=== PATIENT | female | born 1930 | race African-American/Black ===

== ENCOUNTER 2017-01-23 10:11 | Inpatient (IN) ==
[2017-01-23] MEDS ORDERED: SODIUM CHLORIDE 0.9% 1,000 ML IV STA (10:51)
[2017-01-23] MEDS ORDERED: SODIUM CHLORIDE 0.9% 2,000 ML IV STA (11:05)
[2017-01-23 11:19] LABS: Basophils # 0.1 10*3/uL (0.0-0.2); Basophils % 0.4 % (0.0-0.8); Eosinophils # 0.8 10*3/uL (0.0-0.87); Eosinophils % 3.1 % (0.00-10.9); Hemoglobin 11.7 GM/DL (12.0-16.0); Immature Granulocytes % 0.9 %; Immature Granulocytes Absolute 0.21 #; Lymphocytes # 3.7 10*3/uL (1.4-4.0); Lymphocytes % 15.2 % (21.3-54.2); Mean Corpuscular HGB Conc 32.5 GM/DL (32-36); Mean Corpuscular Hemoglobin 30 PG (27-34); Mean Corpuscular Volume 92.5 FL (87-102); Mean Platelet Volume 11.3 FL (9.6-12.0); Monocytes # 1.9 10*3/uL (0.11-0.8); Monocytes % 7.9 % (1.7-12.7); Neutrophils # 17.6 10*3/uL (1.4-7.4); Neutrophils % 72.5 % (38.7-73.9); Platelet Count 178 T/CUMM (130-400); Red Blood Count 3.89 MC/CUMM (3.8-5.5); Red Cell Distribution Width 14.7 % (9.3-17.3); White Blood Count 24.3 T/CUMM (4-12)
[2017-01-23] MEDS ORDERED: PIPERACILLIN/TAZOBACTAM 3,375 MG in SODIUM CHLORIDE 0.9% 100 ML IV STA (11:27)
[2017-01-23 11:32] LABS: ABG Base Excess 5.8 MMOL/L (-2.5-2.5); ABG HCO3 29.7 MMOL/L (20-26); ABG Oxygen Saturation 95.7 % (95-100); ABG PCO2 60.1 MM HG (35-48); ABG PH 7.351 (7.35-7.45); ABG PO2 80.8 MM HG (80-95); ABG TCO2 29.9 MMOL/L (23-27)
[2017-01-23 11:33] LABS: INR 1.1; PT Patient Result 11.4 SECS; Partial Thromboplastin Time 33.6 SECS (0-40)
[2017-01-23 11:44] LABS: Band Neutrophils 7 % (0-10); Lymphocytes 13 % (20-55); Platelet Estimate Normal; Segmented Neutrophils 77 % (50-85); Total Cells Counted 100
[2017-01-23 11:58] LABS: Alanine Aminotransferase 30 U/L (13-56); Albumin 2.6 G/DL (3.4-5.0); Alkaline Phosphatase 126 U/L (45-117); Aspartate Amino Transferase 30 U/L (0-37); Blood Urea Nitrogen 49 MG/DL (7-18); Calcium 9.4 MG/DL (8.5-10.1); Glucose 208 MG/DL (74-106); Sodium 136 MMOL/L (136-145); Total Protein 6.3 G/DL (6.4-8.3); Troponin I Only 0.016 NG/ML (0.00-0.045)
[2017-01-23 12:01] LABS: Apearance,Urine CLEAR (Clear); Bacteria,Urine Occasional /HPF (Few); Bilirubin,Urine Negative (Negative); Blood, Urine Negative (Negative); Glucose,Urine (UA) Negative (Negative); Hyaline Casts,Urine 2 /LPF (0-3); Ketones,Urine Negative (Negative); Mucus,Urine Occasional /LPF (Occasional); Nitrite,Urine Negative (Negative); Protein,Urine Negative; RBC,Urine <1 /HPF (0-4); Squamous Epithelial Cell,Urine Occasional /HPF (0-10); Urine Color Yellow (Yellow); Urine Specific Gravity 1.008 (1.001-1.035); Urine Urobilinogen < 2.0 EU/DL (0.2-1.0); WBC,Urine 1 /HPF (0-6)
[2017-01-23] MEDS ORDERED: PIPERACILLIN/TAZOBACTAM 3,375 MG VIAL IV ONE (12:01)
[2017-01-23 12:16] LABS: Barbiturates Screen,Urine Negative (Negative); Benzodiazepines Screen,Urine Negative (Negative); Cannabinoid Screen,Urine Negative (Negative); Opiate Screen,Urine Negative (Negative); Phencyclidine Screen,Urine Negative (Negative)
[2017-01-23 12:28] LABS: Ammonia < 10 UMOL/L (11-32)
[2017-01-23] MEDS ORDERED: SODIUM CHLORIDE 0.9% 1,000 ML IV ONE (12:30)
[2017-01-23] MEDS ORDERED: DEXTROSE 50% 25 GM/50 ML VIAL IV PRN (15:11)
[2017-01-23] MEDS ORDERED: GLUCAGON 1 MG VIAL IM PRN (15:11)
[2017-01-23] MEDS: SODIUM CHLORIDE 0.9% 1,000 ML IV SCH (15:33)
[2017-01-23] MEDS ORDERED: LEVOFLOXACIN INJ 500 MG in PREMIX 1 EACH IV SCH (16:00)
[2017-01-23] MEDS ORDERED: CYANOCOBALAMIN 1000 MCG/1 ML VIAL IM SCH (17:30)
[2017-01-23] MEDS: INSULIN REGULAR 100 UNIT/ML SUBCUT SCH ×2 (17:36→21:21)
[2017-01-23] MEDS: DONEPEZIL 5 MG TABLET PO SCH (21:21)
[2017-01-23] MEDS: AMITRIPTYLINE 100 MG TABLET PO SCH (21:21)
[2017-01-23] MEDS: SIMVASTATIN 10 MG TABLET PO SCH (21:21)
[2017-01-23] MEDS: MEMANTINE 10 MG TABLET PO SCH ×2 (21:21→21:30)
[2017-01-24] MEDS ORDERED: traMADol 50 MG TABLET PO PRN (03:16)
[2017-01-24 05:24] LABS: Basophils # 0.1 10*3/uL (0.0-0.2); Basophils % 0.6 % (0.0-0.8); Eosinophils # 0.6 10*3/uL (0.0-0.87); Eosinophils % 4.1 % (0.00-10.9); Hematocrit 33.9 VOL% (35.7-47.0); Hemoglobin 11.3 GM/DL (12.0-16.0); Immature Granulocytes % 1.2 %; Immature Granulocytes Absolute 0.18 #; Lymphocytes # 3.2 10*3/uL (1.4-4.0); Lymphocytes % 20.5 % (21.3-54.2); Mean Corpuscular HGB Conc 33.3 GM/DL (32-36); Mean Corpuscular Hemoglobin 31 PG (27-34); Mean Corpuscular Volume 93.1 FL (87-102); Mean Platelet Volume 11.2 FL (9.6-12.0); Monocytes # 1.5 10*3/uL (0.11-0.8); Monocytes % 9.8 % (1.7-12.7); Neutrophils # 9.9 10*3/uL (1.4-7.4); Neutrophils % 63.8 % (38.7-73.9); Platelet Count 201 T/CUMM (130-400); Red Blood Count 3.64 MC/CUMM (3.8-5.5); Red Cell Distribution Width 14.8 % (9.3-17.3); White Blood Count 15.5 T/CUMM (4-12)
[2017-01-24 05:52] LABS: Calcium 8.6 MG/DL (8.5-10.1); Osmolality,Calculated 295.7 MOS/KG (273-304); Potassium 4.5 MMOL/L (3.5-5.1)
[2017-01-24] MEDS: INSULIN REGULAR 100 UNIT/ML SUBCUT SCH ×4 (08:51→21:15)
[2017-01-24] MEDS: CALCIUM (CARBONATE)/VITAMIN D 600 MG-400 UNIT TABLET PO SCH (09:24)
[2017-01-24] MEDS: MEMANTINE 10 MG TABLET PO SCH ×2 (09:25→21:08)
[2017-01-24] MEDS: CHOLECALCIFEROL 1,000 UNIT TABLET PO SCH (09:25)
[2017-01-24] MEDS: PANTOPRAZOLE 40 MG TABLET PO SCH (09:25)
[2017-01-24] MEDS: SODIUM CHLORIDE 0.9% 1,000 ML IV SCH (11:01)
[2017-01-24] MEDS: LEVOFLOXACIN INJ 250 MG in PREMIX 1 EACH IV SCH (15:52)
[2017-01-24] MEDS: DONEPEZIL 5 MG TABLET PO SCH (21:08)
[2017-01-24] MEDS: AMITRIPTYLINE 100 MG TABLET PO SCH (21:08)
[2017-01-24] MEDS: SIMVASTATIN 10 MG TABLET PO SCH (21:08)
[2017-01-24] MEDS ORDERED: ALBUTEROL/IPRATROPIUM 3 ML NEB RESP TX PRN (23:23)
[2017-01-24] MEDS ORDERED: SODIUM CHLORIDE 0.45% 1,000 ML IV SCH (23:30)
[2017-01-24] MEDS ORDERED: NITROGLYCERIN SL 0.4 MG TABLET SL ONE (23:43)
[2017-01-24] MEDS ORDERED: NITROGLYCERIN SL 0.4 MG TABLET SL PRN (23:46)
[2017-01-25 00:04] LABS: Basophils # 0.1 10*3/uL (0.0-0.2); Basophils % 0.5 % (0.0-0.8); Eosinophils # 0.4 10*3/uL (0.0-0.87); Eosinophils % 3.1 % (0.00-10.9); Hemoglobin 11.4 GM/DL (12.0-16.0); Immature Granulocytes % 1.4 %; Immature Granulocytes Absolute 0.16 #; Lymphocytes # 3.2 10*3/uL (1.4-4.0); Lymphocytes % 28.4 % (21.3-54.2); Mean Corpuscular HGB Conc 32.6 GM/DL (32-36); Mean Corpuscular Hemoglobin 30 PG (27-34); Mean Corpuscular Volume 92.8 FL (87-102); Mean Platelet Volume 10.5 FL (9.6-12.0); Monocytes # 1.5 10*3/uL (0.11-0.8); Monocytes % 13.2 % (1.7-12.7); Neutrophils % 53.4 % (38.7-73.9); Platelet Count 214 T/CUMM (130-400); Red Blood Count 3.77 MC/CUMM (3.8-5.5); Red Cell Distribution Width 14.6 % (9.3-17.3); White Blood Count 11.3 T/CUMM (4-12)
[2017-01-25] MEDS ORDERED: hydrALAZINE 20 MG/1 ML VIAL IV PRN (00:04)
[2017-01-25 00:39] LABS: Alanine Aminotransferase 20 U/L (13-56); Albumin 2.3 G/DL (3.4-5.0); Alkaline Phosphatase 96 U/L (45-117); Aspartate Amino Transferase 20 U/L (0-37); Blood Urea Nitrogen 20 MG/DL (7-18); Calcium 8.2 MG/DL (8.5-10.1); Glucose 112 MG/DL (74-106); Osmolality,Calculated 289.8 MOS/KG (273-304); Potassium 4.2 MMOL/L (3.5-5.1); Sodium 144 MMOL/L (136-145); Total Protein 5.9 G/DL (6.4-8.3); Troponin I Only < 0.015 NG/ML (0.00-0.045)
[2017-01-25] MEDS: ALBUTEROL/IPRATROPIUM 3 ML NEB RESP TX SCH ×6 (02:00→23:53)
[2017-01-25 06:50] LABS: Calcium 8.8 MG/DL (8.5-10.1); Osmolality,Calculated 290.7 MOS/KG (273-304); Potassium 4.6 MMOL/L (3.5-5.1)
[2017-01-25 07:34] LABS: Basophils # 0.1 10*3/uL (0.0-0.2); Basophils % 0.7 % (0.0-0.8); Eosinophils # 0.2 10*3/uL (0.0-0.87); Eosinophils % 1.9 % (0.00-10.9); Hematocrit 37.3 VOL% (35.7-47.0); Hemoglobin 12.2 GM/DL (12.0-16.0); Immature Granulocytes % 1.9 %; Immature Granulocytes Absolute 0.23 #; Lymphocytes # 2.5 10*3/uL (1.4-4.0); Lymphocytes % 20.3 % (21.3-54.2); Mean Corpuscular HGB Conc 32.7 GM/DL (32-36); Mean Corpuscular Hemoglobin 30 PG (27-34); Mean Corpuscular Volume 92.6 FL (87-102); Mean Platelet Volume 11.3 FL (9.6-12.0); Monocytes # 1.5 10*3/uL (0.11-0.8); Monocytes % 12.7 % (1.7-12.7); Neutrophils # 7.6 10*3/uL (1.4-7.4); Neutrophils % 62.5 % (38.7-73.9); Platelet Count 236 T/CUMM (130-400); Red Blood Count 4.03 MC/CUMM (3.8-5.5); Red Cell Distribution Width 14.8 % (9.3-17.3); White Blood Count 12.1 T/CUMM (4-12)
[2017-01-25] MEDS: MEMANTINE 10 MG TABLET PO SCH ×2 (10:01→20:32)
[2017-01-25] MEDS: FUROSEMIDE 40 MG TABLET PO SCH ×2 (10:01→16:08)
[2017-01-25] MEDS: PANTOPRAZOLE 40 MG TABLET PO SCH (10:01)
[2017-01-25] MEDS: CALCIUM (CARBONATE)/VITAMIN D 600 MG-400 UNIT TABLET PO SCH (10:01)
[2017-01-25] MEDS: POTASSIUM CHLORIDE 10 MEQ TABLET PO SCH (10:01)
[2017-01-25] MEDS: INSULIN REGULAR 100 UNIT/ML SUBCUT SCH ×4 (10:01→20:33)
[2017-01-25] MEDS: CHOLECALCIFEROL 1,000 UNIT TABLET PO SCH (10:01)
[2017-01-25] MEDS: LOSARTAN 25 MG TABLET PO SCH (10:02)
[2017-01-25] MEDS: SODIUM CHLORIDE 0.9% 1,000 ML IV SCH (10:02)
[2017-01-25] MEDS: LEVOFLOXACIN INJ 250 MG in PREMIX 1 EACH IV SCH (16:08)
[2017-01-25] MEDS: ACETAMINOPHEN 325 MG TABLET PO PRN (17:56)
[2017-01-25] MEDS ORDERED: VANCOMYCIN INJ 1,000 MG in SODIUM CHLORIDE 0.9% 250 ML IV SCH (18:00)
[2017-01-25] MEDS: PIPERACILLIN/TAZOBACTAM 3,375 MG in SODIUM CHLORIDE 0.9% 100 ML IV SCH (18:37)
[2017-01-25] MEDS: DONEPEZIL 5 MG TABLET PO SCH (20:32)
[2017-01-25] MEDS: AMITRIPTYLINE 100 MG TABLET PO SCH (20:32)
[2017-01-25] MEDS: SIMVASTATIN 10 MG TABLET PO SCH (20:32)
[2017-01-25] MEDS ORDERED: VANCOMYCIN INJ 1,500 MG in SODIUM CHLORIDE 0.9% 500 ML IV SCH (22:00)
[2017-01-25 22:14] LABS: Apearance,Urine CLEAR (Clear); Bacteria,Urine Few /HPF (Few); Bilirubin,Urine Negative (Negative); Blood, Urine Negative (Negative); Glucose,Urine (UA) 50 mg/dL (Negative); Hyaline Casts,Urine 1 /LPF (0-3); Ketones,Urine 5 mg/dL (Negative); Mucus,Urine Occasional /LPF (Occasional); Nitrite,Urine Negative (Negative); Protein,Urine Negative; RBC,Urine 7 /HPF (0-4); Squamous Epithelial Cell,Urine Occasional /HPF (0-10); Urine Color Yellow (Yellow); Urine Urobilinogen < 2.0 EU/DL (0.2-1.0); WBC,Urine 3 /HPF (0-6)
[2017-01-26] MEDS: ALBUTEROL/IPRATROPIUM 3 ML NEB RESP TX SCH ×6 (03:25→23:47)
[2017-01-26 05:48] LABS: Basophils # 0.1 10*3/uL (0.0-0.2); Basophils % 0.8 % (0.0-0.8); Eosinophils # 0.2 10*3/uL (0.0-0.87); Eosinophils % 1.6 % (0.00-10.9); Hematocrit 38.7 VOL% (35.7-47.0); Hemoglobin 12.9 GM/DL (12.0-16.0); Immature Granulocytes Absolute 0.23 #; Lymphocytes % 25.8 % (21.3-54.2); Mean Corpuscular HGB Conc 33.3 GM/DL (32-36); Mean Corpuscular Hemoglobin 30 PG (27-34); Mean Corpuscular Volume 90.8 FL (87-102); Mean Platelet Volume 11.3 FL (9.6-12.0); Monocytes # 1.8 10*3/uL (0.11-0.8); Monocytes % 15.8 % (1.7-12.7); Neutrophils # 6.3 10*3/uL (1.4-7.4); Platelet Count 246 T/CUMM (130-400); Red Blood Count 4.26 MC/CUMM (3.8-5.5); Red Cell Distribution Width 14.1 % (9.3-17.3); White Blood Count 11.6 T/CUMM (4-12)
[2017-01-26] MEDS: PIPERACILLIN/TAZOBACTAM 3,375 MG in SODIUM CHLORIDE 0.9% 100 ML IV SCH ×2 (06:03→14:32)
[2017-01-26 06:07] LABS: Calcium 8.9 MG/DL (8.5-10.1); Osmolality,Calculated 283.5 MOS/KG (273-304); Potassium 4.3 MMOL/L (3.5-5.1)
[2017-01-26 06:56] LABS: Hypochromasia 1+; Lymphocytes 14 % (20-55); Platelet Estimate Adequate; Segmented Neutrophils 63 % (50-85); Total Cells Counted 100
[2017-01-26] MEDS: INSULIN REGULAR 100 UNIT/ML SUBCUT SCH ×4 (10:09→21:32)
[2017-01-26] MEDS: LOSARTAN 25 MG TABLET PO SCH (10:10)
[2017-01-26] MEDS: PANTOPRAZOLE 40 MG TABLET PO SCH (10:10)
[2017-01-26] MEDS: MEMANTINE 10 MG TABLET PO SCH ×2 (10:10→21:29)
[2017-01-26] MEDS: POTASSIUM CHLORIDE 10 MEQ TABLET PO SCH (10:10)
[2017-01-26] MEDS: FUROSEMIDE 40 MG TABLET PO SCH ×2 (10:10→16:01)
[2017-01-26] MEDS: CHOLECALCIFEROL 1,000 UNIT TABLET PO SCH (10:16)
[2017-01-26] MEDS: CALCIUM (CARBONATE)/VITAMIN D 600 MG-400 UNIT TABLET PO SCH (10:16)
[2017-01-26] MEDS ORDERED: DEXTROSE 50% 25 GM/50 ML VIAL IV PRN (11:25)
[2017-01-26] MEDS ORDERED: GLUCAGON 1 MG VIAL IM PRN (11:25)
[2017-01-26] MEDS: SODIUM CHLORIDE 0.9% 1,000 ML IV SCH (16:00)
[2017-01-26] MEDS: ACETAMINOPHEN 325 MG TABLET PO PRN (16:01)
[2017-01-26] MEDS: VANCOMYCIN INJ 1,500 MG in SODIUM CHLORIDE 0.9% 500 ML IV SCH (16:01)
[2017-01-26] MEDS ORDERED: INSULIN GLARGINE 100 UNIT/ML SUBCUT SCH (21:00)
[2017-01-26] MEDS: SIMVASTATIN 10 MG TABLET PO SCH (21:29)
[2017-01-26] MEDS: DONEPEZIL 5 MG TABLET PO SCH (21:29)
[2017-01-26] MEDS: AMITRIPTYLINE 100 MG TABLET PO SCH (21:29)
[2017-01-27] MEDS: PIPERACILLIN/TAZOBACTAM 3,375 MG in SODIUM CHLORIDE 0.9% 100 ML IV SCH ×2 (01:12→10:15)
[2017-01-27] MEDS: ALBUTEROL/IPRATROPIUM 3 ML NEB RESP TX SCH ×3 (03:38→11:20)
[2017-01-27] MEDS: FUROSEMIDE 40 MG TABLET PO SCH (09:09)
[2017-01-27] MEDS: INSULIN REGULAR 100 UNIT/ML SUBCUT SCH ×2 (09:10→12:32)
[2017-01-27] MEDS ORDERED: BISACODYL 10 MG SUPP RECTAL PRN (09:36)
[2017-01-27] MEDS: POTASSIUM CHLORIDE 10 MEQ TABLET PO SCH (10:18)
[2017-01-27] MEDS: LOSARTAN 25 MG TABLET PO SCH (10:18)
[2017-01-27] MEDS: CALCIUM (CARBONATE)/VITAMIN D 600 MG-400 UNIT TABLET PO SCH (10:19)
[2017-01-27] MEDS: CHOLECALCIFEROL 1,000 UNIT TABLET PO SCH (10:19)
[2017-01-27] MEDS: MEMANTINE 10 MG TABLET PO SCH (10:19)
[2017-01-27] MEDS: PANTOPRAZOLE 40 MG TABLET PO SCH (10:19)
[2017-01-27 11:44] VITALS: BP 142/70
[2017-01-27] MEDS: VANCOMYCIN INJ 1,500 MG in SODIUM CHLORIDE 0.9% 500 ML IV SCH (16:00)
[2017-01-27] MEDS ORDERED: POLYETHYLENE GLYCOL POWDER 17 GM PACK PO SCH (21:00)
[2017-01-30] MEDS ORDERED: NON-FORMULARY MEDICATION (Alendronate [Fosamax] 70 MG) PO SCH (07:30)
== END 2017-01-27 13:30 | disposition swing bed (61) | DRG 193 ==
LOC: N.ED 10:11 → N.EDINP 12:05 → N.5E 14:57
PROVIDERS: ADMIT Internal Medicine; ATTEND Internal Medicine

== ENCOUNTER 2018-10-01 11:18 | Inpatient (IN) ==
[2018-10-01] MEDS ORDERED: NITROGLYCERIN SL 0.4 MG TABLET SL PRN (11:44)
[2018-10-01 11:59] LABS: Basophils % 0.5 % (0.0-0.8); Eosinophils # 0.3 10*3/uL (0.0-0.87); Eosinophils % 3.6 % (0.00-10.9); Hematocrit 35.8 VOL% (35.7-47.0); Hemoglobin 11.2 GM/DL (12.0-16.0); Immature Granulocytes % 0.7 %; Immature Granulocytes Absolute 0.06 #; Lymphocytes # 2.4 10*3/uL (1.4-4.0); Lymphocytes % 28.3 % (21.3-54.2); Mean Corpuscular HGB Conc 31.3 GM/DL (32-36); Mean Corpuscular Volume 96.8 FL (87-102); Mean Platelet Volume 12.7 FL (9.6-12.0); Monocytes % 13.7 % (1.7-12.7); Neutrophils % 53.2 % (38.7-73.9); Platelet Count 157 T/CUMM (130-400); Red Cell Distribution Width 14.9 % (9.3-17.3); White Blood Count 8.6 T/CUMM (4-12)
[2018-10-01 12:25] LABS: Apearance,Urine Slightly Hazy (Clear); Bilirubin,Urine Negative (Negative); Blood, Urine Negative (Negative); Glucose,Urine (UA) Negative (Negative); Hyaline Casts,Urine 9 /LPF (0-3); Ketones,Urine Negative (Negative); Nitrite,Urine Negative (Negative); Protein,Urine Negative; RBC,Urine 1 /HPF (0-4); Squamous Epithelial Cell,Urine Few /HPF (0-10); Urine Color Straw (Yellow); Urine Specific Gravity 1.008 (1.001-1.035); Urine Urobilinogen < 2.0 EU/DL (0.2-1.0); WBC,Urine <1 /HPF (0-6)
[2018-10-01 12:51] LABS: Alanine Aminotransferase 18 U/L (13-56); Albumin 3.1 G/DL (3.4-5.0); Alkaline Phosphatase 73 U/L (45-117); Aspartate Amino Transferase 35 U/L (0-37); Blood Urea Nitrogen 47 MG/DL (7-18); Calcium 9.1 MG/DL (8.5-10.1); Glucose 104 MG/DL (74-106); Osmolality,Calculated 292.3 MOS/KG (273-304); Total Protein 6.9 G/DL (6.4-8.3)
[2018-10-01 13:01] LABS: Platelet Estimate Normal
[2018-10-01] MEDS ORDERED: ONDANSETRON 4 MG/2 ML VIAL IV STA (13:54)
[2018-10-01] MEDS ORDERED: MORPHINE 4 MG/1 ML VIAL IV STA (13:54)
[2018-10-01] MEDS ORDERED: FUROSEMIDE 40 MG/4 ML VIAL IV STA (14:06)
[2018-10-01] MEDS ORDERED: methylPREDNISolone SOD SUC 40 MG/1 ML VIAL IV STA (14:09)
[2018-10-01] MEDS ORDERED: LACTATED RINGERS 500 ML IV ONE (14:35)
[2018-10-01] MEDS ORDERED: PROMETHAZINE 25 MG/1 ML VIAL IM PRN (14:36)
[2018-10-01] MEDS ORDERED: ONDANSETRON 4 MG/2 ML VIAL IV PRN ×2 (14:36)
[2018-10-01] MEDS ORDERED: guaiFENesin/DM ER 600-30 MG TABLET PO PRN (14:36)
[2018-10-01] MEDS ORDERED: traZODone 50 MG TABLET PO PRN (14:36)
[2018-10-01] MEDS ORDERED: ACETAMINOPHEN 325 MG TABLET PO PRN ×2 (14:36)
[2018-10-01] MEDS ORDERED: LACTULOSE 20 GM/30 ML UDCUP PO PRN (14:38)
[2018-10-01] MEDS ORDERED: DEXTROSE 50% 25 GM/50 ML VIAL IV PRN (14:40)
[2018-10-01] MEDS ORDERED: GLUCAGON 1 MG VIAL IM PRN (14:40)
[2018-10-01] MEDS ORDERED: [UNRECOGNIZED DRUG - OTHER] PO SCH (14:45)
[2018-10-01] MEDS ORDERED: CYANOCOBALAMIN 1000 MCG/1 ML VIAL IM SCH (15:00)
[2018-10-01] MEDS ORDERED: GABAPENTIN 300 MG CAPSULE PO SCH (15:00)
[2018-10-01] MEDS ORDERED: DEXTROSE 5% NACL 0.45% 1,000 ML IV SCH (15:00)
[2018-10-01] MEDS ORDERED: PANTOPRAZOLE 40 MG TABLET PO SCH (15:00)
[2018-10-01] MEDS: ENOXAPARIN 30 MG/0.3 ML SYRINGE SUBCUT SCH (15:16)
[2018-10-01] MEDS: INSULIN LISPRO 100 UNIT/ML SUBCUT SCH ×4 (18:29→21:32)
[2018-10-01] MEDS: DEXTROSE 5% NACL 0.45% 1,000 ML IV SCH (18:40)
[2018-10-01 19:50] LABS: Uric Acid 14.4 MG/DL (2.6-6.0)
[2018-10-01] MEDS: traZODone 50 MG TABLET PO SCH (21:21)
[2018-10-01] MEDS: MELATONIN 3 MG TABLET PO SCH (21:21)
[2018-10-01] MEDS: DOCUSATE SODIUM 100 MG CAPSULE PO SCH (21:22)
[2018-10-01] MEDS: MEMANTINE 10 MG TABLET PO SCH (21:22)
[2018-10-01] MEDS: METOPROLOL TARTRATE 25 MG TABLET PO SCH (21:22)
[2018-10-01] MEDS: AMITRIPTYLINE 100 MG TABLET PO SCH (21:22)
[2018-10-01] MEDS: ASCORBIC ACID 500 MG TABLET PO SCH (21:22)
[2018-10-01] MEDS: SIMVASTATIN 10 MG TABLET PO SCH (21:22)
[2018-10-02] MEDS: DEXTROSE 5% NACL 0.45% 1,000 ML IV SCH ×2 (02:42→09:24)
[2018-10-02 05:07] LABS: Basophils % 0.3 % (0.0-0.8); Hematocrit 34.5 VOL% (35.7-47.0); Hemoglobin 10.7 GM/DL (12.0-16.0); Immature Granulocytes % 0.7 %; Immature Granulocytes Absolute 0.04 #; Lymphocytes % 16.6 % (21.3-54.2); Mean Corpuscular Volume 96.6 FL (87-102); Monocytes % 2.3 % (1.7-12.7); Neutrophils % 80.1 % (38.7-73.9); Platelet Count 177 T/CUMM (130-400); Red Blood Count 3.57 MC/CUMM (3.8-5.5); Red Cell Distribution Width 14.2 % (9.3-17.3); White Blood Count 5.7 T/CUMM (4-12)
[2018-10-02 05:18] LABS: Albumin 2.2 G/DL (3.4-5.0); Bilirubin,Total 0.9 MG/DL (0.2-1.0); Calcium 8.4 MG/DL (8.5-10.1); Osmolality,Calculated 308.1 MOS/KG (273-304); Total Protein 6.3 G/DL (6.4-8.3)
[2018-10-02] MEDS: INSULIN LISPRO 100 UNIT/ML SUBCUT SCH ×8 (06:05→20:40)
[2018-10-02] MEDS: ALBUMIN 25% 25 GM in PREMIX 1 EACH IV SCH ×2 (08:57→16:50)
[2018-10-02] MEDS: SODIUM CHLORIDE 0.9% 1,000 ML IV SCH ×3 (08:58→20:44)
[2018-10-02 09:22] LABS: ABG Base Excess 9.2 MMOL/L (-2.5-2.5); ABG HCO3 32.9 MMOL/L (20-26); ABG Oxygen Saturation 96.4 % (95-100); ABG PCO2 61.1 MM HG (35-48); ABG PH 7.385 (7.35-7.45); ABG PO2 84.3 MM HG (80-95); ABG TCO2 32.7 MMOL/L (23-27)
[2018-10-02] MEDS: CALCIUM (CARBONATE)/VITAMIN D 600 MG-400 UNIT TABLET PO SCH ×2 (12:41→14:57)
[2018-10-02] MEDS: DOCUSATE SODIUM 100 MG CAPSULE PO SCH ×3 (12:41→20:34)
[2018-10-02] MEDS: POTASSIUM CHLORIDE 10 MEQ TABLET PO SCH ×2 (12:41→14:57)
[2018-10-02] MEDS: MEMANTINE 10 MG TABLET PO SCH ×3 (12:42→20:35)
[2018-10-02] MEDS: PANTOPRAZOLE 40 MG TABLET PO SCH ×2 (12:42→14:58)
[2018-10-02] MEDS: predniSONE 20 MG TABLET PO SCH ×2 (12:42→14:58)
[2018-10-02] MEDS: METOPROLOL TARTRATE 25 MG TABLET PO SCH ×3 (12:42→20:34)
[2018-10-02] MEDS: CHOLECALCIFEROL 1,000 UNIT TABLET PO SCH ×2 (12:43→14:58)
[2018-10-02] MEDS: ASCORBIC ACID 500 MG TABLET PO SCH ×3 (12:43→20:34)
[2018-10-02] MEDS: INSULIN GLARGINE 100 UNIT/ML SUBCUT SCH (15:47)
[2018-10-02] MEDS: ENOXAPARIN 30 MG/0.3 ML SYRINGE SUBCUT SCH (16:50)
[2018-10-02] MEDS: MELATONIN 3 MG TABLET PO SCH (20:34)
[2018-10-02] MEDS: AMITRIPTYLINE 100 MG TABLET PO SCH (20:34)
[2018-10-02] MEDS: SIMVASTATIN 10 MG TABLET PO SCH (20:35)
[2018-10-02] MEDS: traZODone 50 MG TABLET PO SCH (20:35)
[2018-10-03] MEDS: ALBUTEROL/IPRATROPIUM 3 ML NEB RESP TX SCH ×4 (01:07→19:15)
[2018-10-03 08:21] LABS: Basophils % 0.2 % (0.0-0.8); Hematocrit 35.5 VOL% (35.7-47.0); Hemoglobin 11.2 GM/DL (12.0-16.0); Immature Granulocytes % 0.8 %; Immature Granulocytes Absolute 0.08 #; Lymphocytes # 1.9 10*3/uL (1.4-4.0); Lymphocytes % 18.4 % (21.3-54.2); Mean Corpuscular HGB Conc 31.5 GM/DL (32-36); Mean Corpuscular Volume 94.9 FL (87-102); Mean Platelet Volume 11.1 FL (9.6-12.0); Monocytes % 9.5 % (1.7-12.7); Neutrophils % 71.1 % (38.7-73.9); Platelet Count 204 T/CUMM (130-400); Red Blood Count 3.74 MC/CUMM (3.8-5.5); Red Cell Distribution Width 14.2 % (9.3-17.3); White Blood Count 10.4 T/CUMM (4-12)
[2018-10-03 08:36] LABS: Albumin 3.5 G/DL (3.4-5.0); Bilirubin,Total 0.6 MG/DL (0.2-1.0); Calcium 9.1 MG/DL (8.5-10.1); Osmolality,Calculated 296.5 MOS/KG (273-304); Total Protein 7.8 G/DL (6.4-8.3)
[2018-10-03] MEDS: INSULIN LISPRO 100 UNIT/ML SUBCUT SCH ×7 (09:09→21:00)
[2018-10-03] MEDS: INSULIN GLARGINE 100 UNIT/ML SUBCUT SCH (09:10)
[2018-10-03] MEDS: SODIUM CHLORIDE 0.9% 1,000 ML IV SCH (09:14)
[2018-10-03] MEDS: ASCORBIC ACID 500 MG TABLET PO SCH ×2 (09:15→20:54)
[2018-10-03] MEDS: CHOLECALCIFEROL 1,000 UNIT TABLET PO SCH (09:15)
[2018-10-03] MEDS: DOCUSATE SODIUM 100 MG CAPSULE PO SCH ×2 (09:15→20:54)
[2018-10-03] MEDS: POTASSIUM CHLORIDE 10 MEQ TABLET PO SCH (09:15)
[2018-10-03] MEDS: METOPROLOL TARTRATE 25 MG TABLET PO SCH ×2 (09:16→20:55)
[2018-10-03] MEDS: PANTOPRAZOLE 40 MG TABLET PO SCH ×2 (09:16→20:55)
[2018-10-03] MEDS: MEMANTINE 10 MG TABLET PO SCH ×2 (09:16→20:54)
[2018-10-03] MEDS: CALCIUM (CARBONATE)/VITAMIN D 600 MG-400 UNIT TABLET PO SCH (09:16)
[2018-10-03] MEDS: predniSONE 20 MG TABLET PO SCH (09:16)
[2018-10-03] MEDS ORDERED: FUROSEMIDE 40 MG/4 ML VIAL IV ONE (10:21)
[2018-10-03] MEDS ORDERED: ALUM/MAG/SIMETH/LIDO VISC 1:1 30 ML BOTTLE PO ONE (11:30)
[2018-10-03] MEDS: ENOXAPARIN 30 MG/0.3 ML SYRINGE SUBCUT SCH (15:00)
[2018-10-03] MEDS: AMITRIPTYLINE 100 MG TABLET PO SCH (20:54)
[2018-10-03] MEDS: MELATONIN 3 MG TABLET PO SCH (20:54)
[2018-10-03] MEDS: SIMVASTATIN 10 MG TABLET PO SCH (20:54)
[2018-10-03] MEDS: traZODone 50 MG TABLET PO SCH (20:54)
[2018-10-04] MEDS: ALBUTEROL/IPRATROPIUM 3 ML NEB RESP TX SCH ×3 (00:40→13:51)
[2018-10-04 05:43] LABS: Basophils % 0.3 % (0.0-0.8); Hematocrit 35.4 VOL% (35.7-47.0); Hemoglobin 10.9 GM/DL (12.0-16.0); Immature Granulocytes % 0.8 %; Immature Granulocytes Absolute 0.09 #; Lymphocytes # 1.9 10*3/uL (1.4-4.0); Mean Corpuscular HGB Conc 30.8 GM/DL (32-36); Mean Corpuscular Volume 95.4 FL (87-102); Mean Platelet Volume 11.3 FL (9.6-12.0); Monocytes % 14.9 % (1.7-12.7); Platelet Count 211 T/CUMM (130-400); Red Blood Count 3.71 MC/CUMM (3.8-5.5); Red Cell Distribution Width 14.4 % (9.3-17.3); White Blood Count 10.7 T/CUMM (4-12)
[2018-10-04 06:29] LABS: Calcium 9.5 MG/DL (8.5-10.1); Osmolality,Calculated 293.3 MOS/KG (273-304)
[2018-10-04] MEDS: INSULIN GLARGINE 100 UNIT/ML SUBCUT SCH (08:27)
[2018-10-04] MEDS: PANTOPRAZOLE 40 MG TABLET PO SCH (08:27)
[2018-10-04] MEDS: INSULIN LISPRO 100 UNIT/ML SUBCUT SCH ×3 (08:28→12:04)
[2018-10-04] MEDS: CHOLECALCIFEROL 1,000 UNIT TABLET PO SCH (08:59)
[2018-10-04] MEDS: DOCUSATE SODIUM 100 MG CAPSULE PO SCH (08:59)
[2018-10-04] MEDS: CALCIUM (CARBONATE)/VITAMIN D 600 MG-400 UNIT TABLET PO SCH (08:59)
[2018-10-04] MEDS: METOPROLOL TARTRATE 25 MG TABLET PO SCH (09:00)
[2018-10-04] MEDS: predniSONE 20 MG TABLET PO SCH (09:00)
[2018-10-04] MEDS: POTASSIUM CHLORIDE 10 MEQ TABLET PO SCH (09:00)
[2018-10-04] MEDS: MEMANTINE 10 MG TABLET PO SCH (09:00)
[2018-10-04] MEDS: ASCORBIC ACID 500 MG TABLET PO SCH (09:00)
[2018-10-04 12:25] VITALS: BP 150/80
== END 2018-10-04 14:56 | disposition swing bed (61) | DRG 682 ==
LOC: EDUNIT# → N.EDINP 11:18 → N.ED 11:18 → OBSVTOIN 14:36 → SUATTDRO 14:36 → N.5E 17:08
PROVIDERS: ADMIT Family Medicine; ATTEND Internal Medicine Cardiovascular Disease

== ENCOUNTER 2018-11-20 14:15 | Inpatient (IN) ==
[2018-11-20] MEDS ORDERED: SODIUM CHLORIDE 0.9% 500 ML IV STA (14:44)
[2018-11-20 14:50] LABS: Basophils # 0.1 10*3/uL (0.0-0.2); Basophils % 0.9 % (0.0-0.8); Eosinophils # 0.5 10*3/uL (0.0-0.87); Eosinophils % 4.6 % (0.00-10.9); Hematocrit 39.1 VOL% (35.7-47.0); Hemoglobin 12.1 GM/DL (12.0-16.0); Immature Granulocytes % 0.9 %; Immature Granulocytes Absolute 0.09 #; Lymphocytes # 3.6 10*3/uL (1.4-4.0); Lymphocytes % 34.4 % (21.3-54.2); Mean Corpuscular HGB Conc 30.9 GM/DL (32-36); Mean Corpuscular Volume 95.6 FL (87-102); Mean Platelet Volume 9.7 FL (9.6-12.0); NRBC # 0.04 10*3/uL; Neutrophils % 47.2 % (38.7-73.9); Platelet Count 277 T/CUMM (130-400); Red Blood Count 4.09 MC/CUMM (3.8-5.5); White Blood Count 10.5 T/CUMM (4-12)
[2018-11-20 15:09] LABS: Albumin 2.3 G/DL (3.4-5.0); Bilirubin,Total 0.6 MG/DL (0.2-1.0); Calcium 8.4 MG/DL (8.5-10.1); Osmolality,Calculated 286.3 MOS/KG (273-304); Total Protein 6.3 G/DL (6.4-8.3)
[2018-11-20] MEDS ORDERED: DEXTROSE 10% 250 ML BAG IV PRN (16:58)
[2018-11-20] MEDS ORDERED: GLUCAGON 1 MG VIAL IM PRN (16:58)
[2018-11-20] MEDS: ALBUTEROL/IPRATROPIUM 3 ML NEB RESP TX SCH (18:50)
[2018-11-20 19:07] LABS: Troponin I 0.571 NG/ML (0.00-0.045)
[2018-11-20 20:45] LABS: Troponin I 0.526 NG/ML (0.00-0.045)
[2018-11-20] MEDS: METOPROLOL TARTRATE 25 MG TABLET PO SCH (21:44)
[2018-11-20] MEDS: GABAPENTIN 300 MG CAPSULE PO SCH (21:44)
[2018-11-20] MEDS: ASCORBIC ACID 500 MG TABLET PO SCH (21:44)
[2018-11-20] MEDS: AMITRIPTYLINE 100 MG TABLET PO SCH (21:44)
[2018-11-20] MEDS: MELATONIN 3 MG TABLET PO SCH (21:44)
[2018-11-20] MEDS: SIMVASTATIN 10 MG TABLET PO SCH (21:44)
[2018-11-20] MEDS: INSULIN LISPRO 100 UNIT/ML SUBCUT SCH (21:45)
[2018-11-21] MEDS: ALBUTEROL/IPRATROPIUM 3 ML NEB RESP TX SCH ×4 (07:26→19:11)
[2018-11-21 07:58] LABS: Basophils # 0.1 10*3/uL (0.0-0.2); Basophils % 0.9 % (0.0-0.8); Eosinophils # 0.7 10*3/uL (0.0-0.87); Eosinophils % 8.3 % (0.00-10.9); Hematocrit 36.9 VOL% (35.7-47.0); Hemoglobin 11.4 GM/DL (12.0-16.0); Immature Granulocytes % 0.9 %; Immature Granulocytes Absolute 0.08 #; Lymphocytes % 34.3 % (21.3-54.2); Mean Corpuscular HGB Conc 30.9 GM/DL (32-36); Mean Corpuscular Volume 96.3 FL (87-102); Mean Platelet Volume 10.1 FL (9.6-12.0); NRBC # 0.02 10*3/uL; Neutrophils % 42.6 % (38.7-73.9); Platelet Count 270 T/CUMM (130-400); Red Blood Count 3.83 MC/CUMM (3.8-5.5); Red Cell Distribution Width 15.1 % (9.3-17.3); White Blood Count 8.8 T/CUMM (4-12)
[2018-11-21 08:38] LABS: Albumin 2.2 G/DL (3.4-5.0); Bilirubin,Total 1.1 MG/DL (0.2-1.0); Calcium 8.1 MG/DL (8.5-10.1); Osmolality,Calculated 290.8 MOS/KG (273-304); Risk Ratio 2.8; Thyroid Stimulating Hormone 5.65 uIU/ml (0.358-3.74); Total Protein 6.2 G/DL (6.4-8.3); VLDL CHOLESTEROL 18.4 MG/DL
[2018-11-21] MEDS ORDERED: CYANOCOBALAMIN 1000 MCG/1 ML VIAL IM SCH (09:00)
[2018-11-21] MEDS: FUROSEMIDE 40 MG/4 ML VIAL IV SCH (09:58)
[2018-11-21] MEDS: CHOLECALCIFEROL 1,000 UNIT TABLET PO SCH (09:59)
[2018-11-21] MEDS: METOPROLOL TARTRATE 25 MG TABLET PO SCH ×2 (09:59→21:50)
[2018-11-21] MEDS: ASCORBIC ACID 500 MG TABLET PO SCH ×2 (09:59→21:50)
[2018-11-21] MEDS: GABAPENTIN 300 MG CAPSULE PO SCH ×3 (09:59→21:50)
[2018-11-21] MEDS: MEMANTINE 10 MG TABLET PO SCH ×2 (09:59→21:50)
[2018-11-21] MEDS: LOSARTAN 25 MG TABLET PO SCH (09:59)
[2018-11-21] MEDS: INSULIN LISPRO 100 UNIT/ML SUBCUT SCH ×4 (10:00→21:51)
[2018-11-21] MEDS: CALCIUM (CARBONATE)/VITAMIN D 600 MG-400 UNIT TABLET PO SCH (10:08)
[2018-11-21] MEDS: SIMVASTATIN 10 MG TABLET PO SCH (21:50)
[2018-11-21] MEDS: MELATONIN 3 MG TABLET PO SCH (21:50)
[2018-11-21] MEDS: AMITRIPTYLINE 100 MG TABLET PO SCH (21:50)
[2018-11-21] MEDS ORDERED: ALUMINUM/MAGNES/SIMETH MAX STR 30 ML UDCUP PO PRN (23:07)
[2018-11-22] MEDS: ALBUTEROL/IPRATROPIUM 3 ML NEB RESP TX SCH ×4 (00:42→19:55)
[2018-11-22 06:35] LABS: Basophils # 0.1 10*3/uL (0.0-0.2); Basophils % 0.9 % (0.0-0.8); Eosinophils # 0.6 10*3/uL (0.0-0.87); Eosinophils % 6.7 % (0.00-10.9); Hematocrit 35.8 VOL% (35.7-47.0); Hemoglobin 11.1 GM/DL (12.0-16.0); Immature Granulocytes % 0.7 %; Immature Granulocytes Absolute 0.06 #; Lymphocytes # 2.9 10*3/uL (1.4-4.0); Lymphocytes % 35.1 % (21.3-54.2); Mean Platelet Volume 10.9 FL (9.6-12.0); Monocytes % 11.3 % (1.7-12.7); Neutrophils % 45.3 % (38.7-73.9); Platelet Count 264 T/CUMM (130-400); Red Blood Count 3.81 MC/CUMM (3.8-5.5); Red Cell Distribution Width 15.2 % (9.3-17.3); White Blood Count 8.2 T/CUMM (4-12)
[2018-11-22 06:57] LABS: Albumin 2.2 G/DL (3.4-5.0); Bilirubin,Total 1.1 MG/DL (0.2-1.0); Calcium 8.3 MG/DL (8.5-10.1)
[2018-11-22] MEDS: INSULIN LISPRO 100 UNIT/ML SUBCUT SCH ×4 (08:14→21:37)
[2018-11-22] MEDS: ASCORBIC ACID 500 MG TABLET PO SCH ×2 (08:14→21:37)
[2018-11-22] MEDS: CALCIUM (CARBONATE)/VITAMIN D 600 MG-400 UNIT TABLET PO SCH (08:14)
[2018-11-22] MEDS: MEMANTINE 10 MG TABLET PO SCH ×2 (08:14→21:37)
[2018-11-22] MEDS: GABAPENTIN 300 MG CAPSULE PO SCH ×3 (08:15→21:36)
[2018-11-22] MEDS: METOPROLOL TARTRATE 25 MG TABLET PO SCH ×2 (08:15→22:13)
[2018-11-22] MEDS: LOSARTAN 25 MG TABLET PO SCH (08:15)
[2018-11-22] MEDS: CHOLECALCIFEROL 1,000 UNIT TABLET PO SCH (08:15)
[2018-11-22] MEDS: FUROSEMIDE 40 MG/4 ML VIAL IV SCH (08:16)
[2018-11-22 09:49] LABS: Apearance,Urine CLEAR (Clear); Bilirubin,Urine Negative (Negative); Blood, Urine Negative (Negative); Glucose,Urine (UA) Negative (Negative); Ketones,Urine 5 mg/dL (Negative); Nitrite,Urine Negative (Negative); Protein,Urine Negative; RBC,Urine <1 /HPF (0-4); Squamous Epithelial Cell,Urine Occasional /HPF (0-10); Urine Color Yellow (Yellow); WBC,Urine 6 /HPF (0-6)
[2018-11-22] MEDS ORDERED: SODIUM CHLORIDE 0.9% 250 ML IV ONE ×2 (15:05→16:23)
[2018-11-22] MEDS: cefTRIAXone 1,000 MG in SYRINGE 1 EACH IV SCH (16:38)
[2018-11-22 18:45] LABS: Basophils # 0.1 10*3/uL (0.0-0.2); Basophils % 0.6 % (0.0-0.8); Eosinophils # 0.5 10*3/uL (0.0-0.87); Eosinophils % 5.7 % (0.00-10.9); Hemoglobin 10.4 GM/DL (12.0-16.0); Immature Granulocytes % 0.8 %; Immature Granulocytes Absolute 0.06 #; Lymphocytes # 2.8 10*3/uL (1.4-4.0); Lymphocytes % 35.2 % (21.3-54.2); Mean Corpuscular HGB Conc 30.6 GM/DL (32-36); Mean Corpuscular Volume 96.9 FL (87-102); Mean Platelet Volume 9.9 FL (9.6-12.0); Monocytes % 13.2 % (1.7-12.7); Neutrophils % 44.5 % (38.7-73.9); Platelet Count 239 T/CUMM (130-400); Red Blood Count 3.51 MC/CUMM (3.8-5.5); Red Cell Distribution Width 15.3 % (9.3-17.3); White Blood Count 7.9 T/CUMM (4-12)
[2018-11-22 19:04] LABS: Calcium 7.7 MG/DL (8.5-10.1)
[2018-11-22] MEDS: MELATONIN 3 MG TABLET PO SCH (21:36)
[2018-11-22] MEDS: AMITRIPTYLINE 100 MG TABLET PO SCH (21:37)
[2018-11-22] MEDS: SIMVASTATIN 10 MG TABLET PO SCH (21:37)
[2018-11-23] MEDS: ALBUTEROL/IPRATROPIUM 3 ML NEB RESP TX SCH ×4 (01:50→19:15)
[2018-11-23 04:49] LABS: Basophils % 0.5 % (0.0-0.8); Eosinophils # 0.5 10*3/uL (0.0-0.87); Eosinophils % 6.5 % (0.00-10.9); Hematocrit 34.8 VOL% (35.7-47.0); Hemoglobin 10.8 GM/DL (12.0-16.0); Immature Granulocytes % 0.6 %; Immature Granulocytes Absolute 0.05 #; Lymphocytes # 2.8 10*3/uL (1.4-4.0); Lymphocytes % 36.2 % (21.3-54.2); Mean Corpuscular Volume 94.6 FL (87-102); Mean Platelet Volume 10.2 FL (9.6-12.0); Neutrophils % 43.2 % (38.7-73.9); Platelet Count 256 T/CUMM (130-400); Red Blood Count 3.68 MC/CUMM (3.8-5.5); White Blood Count 7.8 T/CUMM (4-12)
[2018-11-23 05:24] LABS: Albumin 2.1 G/DL (3.4-5.0); Bilirubin,Total 0.7 MG/DL (0.2-1.0); Total Protein 5.8 G/DL (6.4-8.3)
[2018-11-23] MEDS: METOPROLOL TARTRATE 25 MG TABLET PO SCH ×2 (08:55→21:01)
[2018-11-23] MEDS: LOSARTAN 25 MG TABLET PO SCH (08:56)
[2018-11-23] MEDS: MEMANTINE 10 MG TABLET PO SCH ×2 (08:56→21:01)
[2018-11-23] MEDS: CHOLECALCIFEROL 1,000 UNIT TABLET PO SCH (08:56)
[2018-11-23] MEDS: ASCORBIC ACID 500 MG TABLET PO SCH ×2 (08:56→21:01)
[2018-11-23] MEDS: GABAPENTIN 300 MG CAPSULE PO SCH ×3 (08:57→21:01)
[2018-11-23] MEDS: INSULIN LISPRO 100 UNIT/ML SUBCUT SCH ×4 (08:57→21:01)
[2018-11-23] MEDS: CALCIUM (CARBONATE)/VITAMIN D 600 MG-400 UNIT TABLET PO SCH (08:57)
[2018-11-23] MEDS: cefTRIAXone 1,000 MG in SYRINGE 1 EACH IV SCH (15:51)
[2018-11-23] MEDS: SIMVASTATIN 10 MG TABLET PO SCH (21:01)
[2018-11-23] MEDS: MELATONIN 3 MG TABLET PO SCH (21:01)
[2018-11-23] MEDS: AMITRIPTYLINE 100 MG TABLET PO SCH (21:01)
[2018-11-24] MEDS: ALBUTEROL/IPRATROPIUM 3 ML NEB RESP TX SCH ×4 (00:25→20:05)
[2018-11-24 06:05] LABS: Calcium 9.1 MG/DL (8.5-10.1); Osmolality,Calculated 291.1 MOS/KG (273-304)
[2018-11-24] MEDS: LOSARTAN 25 MG TABLET PO SCH (08:23)
[2018-11-24] MEDS: CHOLECALCIFEROL 1,000 UNIT TABLET PO SCH (08:23)
[2018-11-24] MEDS: CALCIUM (CARBONATE)/VITAMIN D 600 MG-400 UNIT TABLET PO SCH (08:23)
[2018-11-24] MEDS: ASCORBIC ACID 500 MG TABLET PO SCH ×2 (08:23→20:43)
[2018-11-24] MEDS: METOPROLOL TARTRATE 25 MG TABLET PO SCH ×2 (08:23→20:43)
[2018-11-24] MEDS: GABAPENTIN 300 MG CAPSULE PO SCH ×3 (08:23→20:43)
[2018-11-24] MEDS: MEMANTINE 10 MG TABLET PO SCH ×2 (08:23→20:43)
[2018-11-24] MEDS: INSULIN LISPRO 100 UNIT/ML SUBCUT SCH ×4 (08:24→20:42)
[2018-11-24] MEDS: INSULIN GLARGINE 100 UNIT/ML SUBCUT SCH (16:45)
[2018-11-24] MEDS: cefTRIAXone 1,000 MG in SYRINGE 1 EACH IV SCH (16:46)
[2018-11-24] MEDS: SIMVASTATIN 10 MG TABLET PO SCH (20:43)
[2018-11-24] MEDS: AMITRIPTYLINE 100 MG TABLET PO SCH (20:43)
[2018-11-24] MEDS: MELATONIN 3 MG TABLET PO SCH (20:43)
[2018-11-25] MEDS: ALBUTEROL/IPRATROPIUM 3 ML NEB RESP TX SCH ×4 (00:25→19:46)
[2018-11-25] MEDS: INSULIN GLARGINE 100 UNIT/ML SUBCUT SCH (09:06)
[2018-11-25] MEDS: INSULIN LISPRO 100 UNIT/ML SUBCUT SCH ×4 (09:07→21:12)
[2018-11-25] MEDS: MEMANTINE 10 MG TABLET PO SCH ×2 (09:07→21:05)
[2018-11-25] MEDS: CHOLECALCIFEROL 1,000 UNIT TABLET PO SCH (09:07)
[2018-11-25] MEDS: GABAPENTIN 300 MG CAPSULE PO SCH ×3 (09:07→21:04)
[2018-11-25] MEDS: ASCORBIC ACID 500 MG TABLET PO SCH ×2 (09:08→21:04)
[2018-11-25] MEDS: LOSARTAN 25 MG TABLET PO SCH (09:08)
[2018-11-25] MEDS: CALCIUM (CARBONATE)/VITAMIN D 600 MG-400 UNIT TABLET PO SCH (09:08)
[2018-11-25] MEDS: METOPROLOL TARTRATE 25 MG TABLET PO SCH ×2 (09:08→21:04)
[2018-11-25] MEDS: cefTRIAXone 1,000 MG in SYRINGE 1 EACH IV SCH (16:19)
[2018-11-25] MEDS: MELATONIN 3 MG TABLET PO SCH (21:04)
[2018-11-25] MEDS: SIMVASTATIN 10 MG TABLET PO SCH (21:04)
[2018-11-25] MEDS: AMITRIPTYLINE 100 MG TABLET PO SCH (21:04)
[2018-11-26] MEDS: ALBUTEROL/IPRATROPIUM 3 ML NEB RESP TX SCH ×4 (00:26→19:17)
[2018-11-26] MEDS: INSULIN GLARGINE 100 UNIT/ML SUBCUT SCH (09:51)
[2018-11-26] MEDS: GABAPENTIN 300 MG CAPSULE PO SCH ×3 (09:52→22:04)
[2018-11-26] MEDS: INSULIN LISPRO 100 UNIT/ML SUBCUT SCH ×4 (09:52→22:05)
[2018-11-26] MEDS: MEMANTINE 10 MG TABLET PO SCH ×2 (09:52→22:04)
[2018-11-26] MEDS: ASCORBIC ACID 500 MG TABLET PO SCH ×2 (09:52→22:04)
[2018-11-26] MEDS: LOSARTAN 25 MG TABLET PO SCH (09:52)
[2018-11-26] MEDS: CHOLECALCIFEROL 1,000 UNIT TABLET PO SCH (09:52)
[2018-11-26] MEDS: CALCIUM (CARBONATE)/VITAMIN D 600 MG-400 UNIT TABLET PO SCH (09:52)
[2018-11-26] MEDS: METOPROLOL TARTRATE 25 MG TABLET PO SCH ×2 (09:52→22:05)
[2018-11-26] MEDS: AMOXICILLIN 500 MG CAPSULE PO SCH ×2 (16:22→22:04)
[2018-11-26] MEDS: MELATONIN 3 MG TABLET PO SCH (22:04)
[2018-11-26] MEDS: AMITRIPTYLINE 100 MG TABLET PO SCH (22:05)
[2018-11-26] MEDS: SIMVASTATIN 10 MG TABLET PO SCH (22:05)
[2018-11-27] MEDS: ALBUTEROL/IPRATROPIUM 3 ML NEB RESP TX SCH ×3 (00:37→14:01)
[2018-11-27] MEDS: INSULIN LISPRO 100 UNIT/ML SUBCUT SCH ×2 (09:30→12:34)
[2018-11-27] MEDS: ASCORBIC ACID 500 MG TABLET PO SCH (09:30)
[2018-11-27] MEDS: INSULIN GLARGINE 100 UNIT/ML SUBCUT SCH (09:30)
[2018-11-27] MEDS: CALCIUM (CARBONATE)/VITAMIN D 600 MG-400 UNIT TABLET PO SCH (09:33)
[2018-11-27] MEDS: CHOLECALCIFEROL 1,000 UNIT TABLET PO SCH (09:33)
[2018-11-27] MEDS: GABAPENTIN 300 MG CAPSULE PO SCH (09:33)
[2018-11-27] MEDS: MEMANTINE 10 MG TABLET PO SCH (09:33)
[2018-11-27] MEDS: AMOXICILLIN 500 MG CAPSULE PO SCH (09:33)
[2018-11-27] MEDS: LOSARTAN 25 MG TABLET PO SCH (09:33)
[2018-11-27] MEDS: METOPROLOL TARTRATE 25 MG TABLET PO SCH (09:33)
[2018-11-27 12:34] VITALS: BP 136/67
== END 2018-11-27 15:32 | disposition home or self-care (01) | DRG 291 ==
LOC: EDBD → EDUNIT# → N.ED 14:15 → SUATTDRO 16:42 → N.EDINP 16:42 → N.5E 17:07
PROVIDERS: ADMIT Internal Medicine; ATTEND Hospitalist